=== PATIENT | male | born 1940 | race Caucasian/White ===

== ENCOUNTER → 2016-12-07 | Outpatient (CLI) | payer OTHER, MEDICARE | LOC: BMCIMAGING 14:09 | PROVIDERS: ATTEND Nurse Practitioner Adult Health | DX: Z01.810 Encounter for preprocedural cardiovascular examination (principal); R01.1 Cardiac murmur, unspecified; R91.8 Other nonspecific abnormal finding of lung field ==

== ENCOUNTER → 2016-12-28 | Outpatient (CLI) | payer OTHER, MEDICARE | LOC: FIMAGING 13:56 | PROVIDERS: ATTEND Physician Assistant Medical | DX: N20.0 Calculus of kidney (principal); N28.1 Cyst of kidney, acquired; N43.3 Hydrocele, unspecified; I70.0 Atherosclerosis of aorta ==

== ENCOUNTER → 2017-01-29 | Outpatient (CLI) | payer OTHER, MEDICARE | LOC: FLAB 13:20 | PROVIDERS: ATTEND Physician Assistant Medical | DX: N20.0 Calculus of kidney (principal); K59.00 Constipation, unspecified; Z96.0 Presence of urogenital implants ==

== ENCOUNTER → 2017-03-01 | Outpatient (CLI) | payer OTHER, MEDICARE | LOC: BMCIMAGING 07:17 | PROVIDERS: ATTEND Specialist | DX: N20.0 Calculus of kidney (principal); N28.1 Cyst of kidney, acquired; R31.0 Gross hematuria; N23 Unspecified renal colic ==

== ENCOUNTER 2017-08-25 09:45 | Inpatient (IN) | payer OTHER, MEDICARE ==
[~2017-08-25 09:45] MED LIST: TRANEXAMIC ACID 3,000 MG in NS 50 ML IRR ONE
[2017-08-25] MEDS ORDERED: TRANEXAMIC ACID 3,000 MG/50 ML BAG IRR ONE (09:56)
[2017-08-25] MEDS ORDERED: VANCOMYCIN 1 GM VIAL ONE (09:56)
--- NOTE | 2017-08-25 11:09 | PDHPUP ---
History & Physical Update H&P update statement: This history and physical update is based on an assessment of the patient which was completed after admission or registration (within 24 hours), but prior to the surgery/procedure. H&P update: H&P reviewed & patient examined, no change in patient's condition since H&P completed
[2017-08-25] MEDS ORDERED: FAMOTIDINE 20 MG TAB PO ONE (11:13)
[2017-08-25] MEDS ORDERED: DEXAMETHASONE 4 MG/ML VIAL IVP ONE (11:13)
[2017-08-25] MEDS ORDERED: ceFAZolin 2 GM/SWFI 2 GM/20 ML SYR IVP ONE (11:13)
[2017-08-25] MEDS ORDERED: ACETAMINOPHEN 325 MG TAB PO ONE (11:13)
[2017-08-25] MEDS ORDERED: LIDOCAINE 1% 2 ML INJ ID PRN (11:14)
[2017-08-25] MEDS ORDERED: LR 1,000 ML IV ONE (11:14)
[2017-08-25] MEDS ORDERED: MIDAZOLAM 2 MG/2 ML VIAL ONE (12:33)
--- NOTE | 2017-08-25 12:35 | PDANEPAE ---
ANE History of Present Illness R knee arthroplasty revision ANE Past Medical History - Cardiovascular History Hx Hypertension: Yes Hx Arrhythmias: No Hx Chest Pain: No Hx Coronary Artery / Peripheral Vascular Disease: No Hx CHF / Valvular Disease: No Hx Palpitations: No - Pulmonary History Hx COPD: No Hx Asthma/Reactive Airway Disease: No Hx Recent Upper Respiratory Infection: No Hx Oxygen in Use at Home: No Sleep Apnea Screening Result - Last Documented: Positive Pulmonary History Comment: USES CPAP - Neurologic History Hx Cerebrovascular Accident: No Hx Seizures: No Hx Dementia: No - Endocrine History Hx Diabetes: Yes Hypothyroid: No Obesity: mild Endocrine History Comment: DM II TAKES METFORMIN - Renal History Hx Renal Disorders: Yes Renal History Comment: KIDNEY STONES IN PAST - Liver History Hx Hepatic Disorders: No Hepatic History Comment: JERARDO - Neurological & Psychiatric Hx Hx Neurological and Psychiatric Disorders: No - Cancer History Hx Cancer: Yes Cancer History Comment: SKIN CANCER EAR & HEAD - Congenital Disorder History Hx Congenital Disorders: No - GI History Hx Gastrointestinal Disorders: No Gastrointestinal History Comment: GERD - Other Health History Other Health History: NONE - Chronic Pain History Chronic Pain: Yes (KNEE PAIN) - Surgical History Prior Surgeries: CHOLECYSTECTOMY. L. KIDNEY STONES. RIGHT TKA WITH DR CHEN . T & A. JROJE KNEE ARTHROSCOPY. JORJE SHOULDER ARTHROSCOPY ANE Review of Systems Review of Systems: - Exercise capacity METS (RN): 4 METS ANE Patient History - Allergies Allergies/Adverse Reactions: Iodinated Contrast- Oral and IV Dye Allergy (Severe, Verified 08/09/17 15:18) facial swelling, difficulty breathing & talking amoxicillin Allergy (Verified 08/04/17 13:10) Vomiting - Home Medications Home Medications: Atorvastatin Calcium [Lipitor 10 mg (*)] 10 mg PO HS 03/29/10 [Last Taken 17:00] Lisinopril [Zestril 10 mg (*)] 10 mg PO DAILY 03/29/10 [Last Taken 08/24/17 07: 00] Allopurinol [Allopurinol 100 MG (*)] 100 mg PO HS 07/27/14 [Last Taken 08/21/17] Metformin HCl [Metformin 1000 mg] 1,000 mg PO BIDMEAL 12/31/14 [Last Taken 08/24 17:00] Multivitamin with Minerals [Multiple Vitamin] 1 each PO DAILY 08/04/17 [Last Taken 08/18/17] - NPO status NPO Since - Liquids (Date): 08/25/17 NPO Since - Liquids (Time): 10:00 NPO Since - Solids (Date): 08/24/17 NPO Since - Solids (Time): 17:00 - Anes Hx Anes Hx: no prior problems - Smoking Hx Smoking Status: Never smoked Marijuana use: No - Alcohol Use Alcohol Use: Occasionally - Family Anes Hx Family Anes Hx: none Family Hx Anesthesia Complications: NONE ANE Labs/Vital Signs - Vital Signs Blood Pressure: 157/80 Heart Rate: 70 Respiratory Rate: 16 O2 Sat (%): 94 Height: 179.07 cm Weight: 97.522 kg ANE Physical Exam - Airway Neck exam: decreased ROM Mallampati Score: Class 3 (less than 3 FB mouth opening) Mouth exam: normal dental/mouth exam (SHORT TMD ) - Pulmonary Pulmonary: clear to auscultation - Cardiovascular Cardiovascular: regular rate and rhythym - ASA Status ASA Status: III ANE Anesthesia Plan Anesthesia Plan: spinal Regional Anesthesia: adductor canal FNB
[2017-08-25] MEDS ORDERED: fentaNYL 100 MCG/2 ML INJ ONE (12:56)
[2017-08-25] MEDS ORDERED: PROPOFOL 200 MG/20 ML VIAL ONE ×2 (12:56→14:18)
[2017-08-25] MEDS: ROPIVACAINE 0.2% 80 MG, EPINEPHrine 0.2 MG, KETOROLAC TROMETHAMINE 30 MG in SYRINGE 0 ML IU ONE ×2 (13:43→14:04)
[2017-08-25] MEDS ORDERED: MIDAZOLAM 2 MG/2 ML VIAL IVP ONE (13:45)
[2017-08-25] MEDS ORDERED: fentaNYL 100 MCG/2 ML INJ IVP PRN (14:04)
[2017-08-25] MEDS ORDERED: NALOXONE HCL 0.4 MG/ML INJ IVP PRN (14:04)
[2017-08-25] MEDS ORDERED: ROPIVACAINE HCL 150 MG/30 ML INJ ONE (14:20)
[2017-08-25] MEDS ORDERED: LR 1,000 ML IV SCH (14:30)
[2017-08-25] MEDS ORDERED: ONDANSETRON DISINTEGRATING 4 MG TAB PO PRN (14:30)
[2017-08-25] MEDS ORDERED: PROMETHAZINE HCL 25 MG SUPPR PR PRN (14:30)
[2017-08-25] MEDS ORDERED: PROMETHAZINE HCL 25 MG/ML INJ IVP PRN (14:30)
[2017-08-25] MEDS ORDERED: METOCLOPRAMIDE 10 MG/2 ML VIAL IVP PRN (14:30)
[2017-08-25] MEDS ORDERED: TEMAZEPAM 15 MG CAP PO PRN (14:30)
[2017-08-25] MEDS ORDERED: DIPHENOXYLATE/ATROPINE LOMOTIL 1 TAB PO PRN (14:30)
[2017-08-25] MEDS ORDERED: diphenhydrAMINE 25 MG CAP PO PRN (14:30)
[2017-08-25] MEDS ORDERED: MAGNESIUM HYDROXIDE 30 ML UDCUP PO PRN (14:30)
[2017-08-25] MEDS ORDERED: BISACODYL 10 MG SUPP PR PRN (14:30)
[2017-08-25] MEDS ORDERED: POLYETHYLENE GLYCOL 3350 17 GM PKT PO PRN (14:30)
[2017-08-25] MEDS ORDERED: CYCLOBENZAPRINE 10 MG TAB PO PRN (14:30)
[2017-08-25] MEDS ORDERED: oxyCODONE IR 5 MG TAB PO PRN (14:30)
[2017-08-25] MEDS ORDERED: LACTULOSE 20 GM/30 ML UDCUP PO PRN (14:30)
[2017-08-25] MEDS ORDERED: ONDANSETRON 4 MG/2 ML VIAL IVP PRN (14:30)
--- NOTE | 2017-08-25 14:30 | POSTOPPROG ---
Post Op Note Date of Operation: 08/25/17 Surgeon: Lisa Allen Limousine Driver: william allen Anesthesiologist: dr. kerns Anesthesia: Spinal, Other (Specify) (adductor canal block) Pre-op Diagnosis: failed R TKA Post-op Diagnosis: same Indication: Painful R TKA Procedure: R TKA revision Findings: instability Inf/Abcess present in the surg proc area at time of surgery?: No EBL: 50-100
--- NOTE | 2017-08-25 16:25 | POSTANESTH ---
Post Anesthetic Evaluation Cardiovascular Status: Similar to Pre-Op Cond Level of Consciousness/Mental Status: Can Participate in Eval Pain Control: Adequate, Prn Tx Ordered Nausea/Vomiting Control: Adequate, Prn Tx Ordered Complications Possibly Related to Anesthesia: None Noted
[2017-08-25] MEDS: metFORMIN HCL 500 MG TAB PO SCH (17:21)
[2017-08-25] MEDS: ACETAMINOPHEN 325 MG TAB PO SCH ×2 (17:22→23:24)
[2017-08-25] MEDS ORDERED: NON-FORMULARY NEW DRUG (Metformin Hcl [Metformin 1000 Mg] 1,000 MG) PO SCH (18:00)
[2017-08-25] MEDS: ASPIRIN EC 81 MG TAB PO SCH (20:00)
[2017-08-25] MEDS: FAMOTIDINE 20 MG TAB PO SCH (20:00)
[2017-08-25] MEDS: SENNOSIDES/DOCUSATE SODIUM TAB PO SCH (20:00)
[2017-08-25] MEDS: ceFAZolin 2 GM/SWFI 2 GM/20 ML SYR IVP SCH (20:00)
[2017-08-25] MEDS ORDERED: ATORVASTATIN CALCIUM 10 MG TAB PO SCH (21:00)
[2017-08-26 05:00] VITALS: O2SAT 93
[2017-08-26] MEDS: ceFAZolin 2 GM/SWFI 2 GM/20 ML SYR IVP SCH (05:03)
[2017-08-26] MEDS: ACETAMINOPHEN 325 MG TAB PO SCH ×2 (05:03→13:28)
[2017-08-26 06:52] LABS: HEMATOCRIT 37.6 % (40.0-51.0); HEMOGLOBIN 12.9 g/dL (13.7-17.5)
[2017-08-26 07:45] VITALS: BP 139/80; PULSE 68; RESP 16; TEMP 98
[2017-08-26] MEDS: metFORMIN HCL 500 MG TAB PO SCH (08:47)
[2017-08-26] MEDS: ASPIRIN EC 81 MG TAB PO SCH (08:47)
[2017-08-26] MEDS: FAMOTIDINE 20 MG TAB PO SCH (08:47)
[2017-08-26] MEDS: SENNOSIDES/DOCUSATE SODIUM TAB PO SCH (08:47)
[2017-08-26] MEDS ORDERED: LISINOPRIL 10 MG TAB PO SCH (09:00)
--- NOTE | 2017-08-26 09:28 | SOAPPROG ---
SOAP Progress Note Assessment/Plan: Assessment: Patient is doing well POD 1 s/p R TKA revision Pain management: pain is well controlled on oral pain meds. VTE ppx: recommend aspirin daily for 4 weeks, cont BRYAN and SCDs Anemia: level is expected initially postop. Asymptomatic. Continue to monitor D/c planning: d/c to home today pending release from PT Plan: 08/26/17 09:27 Subjective: Brooks is doing well today, denies SOB, chest pain and N/V. Objective: Vital Signs Temp Pulse Resp BP Pulse Ox 36.7 C 68 16 139/80 H 93 08/26/17 07:43 08/26/17 07:43 08/26/17 07:43 08/26/17 08:46 08/26/17 07:43 Laboratory Results 08/26/17 05:40 08/25/17 08/26/17 08/27/17 05:59 05:59 05:59 Intake Total 1350 Output Total 1255 Balance 95 RLE: incision dressing is clean and dry, NVI, +pf/df ICD10 Worksheet Patient Problems: Problems Problem Status Onset Failed total knee arthroplasty Acute Osteoarthritis of right knee Acute
--- NOTE | 2017-08-26 16:15 | ASDISCHSUM ---
Discharge Information Plan Status:Home with No Needs Medically Cleared to Leave: Discharge Date:08/26/2017 04:04 PM D/C Disposition:Home Health Service ADT D/C Disposition:Home, Routine, Self-Care Projected Discharge Date:08/26/2017 04:04 PM Transportation at D/C: Discharge Delay Reason: Follow-Up Date:08/26/2017 04:04 PM Discharge Slot: Final Diagnosis: Placement Information Patient Contact Information Contact Name:CHONG Relationship:Damian Address: Work Phone: City[email or web address] Alternate Phone: [facility]/Zip Code:[place] [address] Email: Financial Information Financial Class: Primary Plan Desc:MEDICARE INPATIENT Primary Plan Number:[id number] Secondary Plan Desc:[employer]/MDR SUPPLEMENT Secondary Plan Number:[id number] Assessment Information Intervention Information
--- NOTE | 2017-08-27 03:09 | GDS ---
[f rep st] DISCHARGE SUMMARY ADMISSION DIAGNOSIS: Right knee osteoarthritis. DISCHARGE DIAGNOSIS: Right knee osteoarthritis. PROCEDURE: Revision right knee arthroplasty. VTE PROPHYLAXIS: Recommend aspirin. BRIEF DESCRIPTION OF HOSPITAL STAY: Patient was admitted for an elective joint arthroplasty. The pa micky tolerated the procedure well and has passed physical therapy. The patient was given appropriat e antibiotic prophylaxis and venous thromboembolism prophylaxis. The patient's pain was well control led on oral pain medication, patient was holding down food, and had urinated. Decision was made to d ischarge the patient. The patient was given post-operative prescriptions pre-operatively. PLAN: Please follow up as scheduled at Dr. Benjamin's office September 16 at 9 a.m. /[id number]/MODL
--- NOTE | 2017-08-27 12:24 | GOP ---
[f rep st] OPERATIVE REPORT DATE OF OPERATION: 08/25/2017 SURGEON: Paco Benjamin MD TELEMETRY MONITOR: Maritza Benjamin, DOUG. PREOPERATIVE DIAGNOSIS: Right knee unstable total knee arthroplasty. POSTOPERATIVE DIAGNOSIS: Right knee unstable total knee arthroplasty. PROCEDURE PERFORMED: Revision of right total knee arthroplasty, tibial component. FINDINGS: Global instability, well fixed components ESTIMATED BLOOD LOSS: 30 cc. INDICATIONS: The patient is a 76-year-old gentleman with failed total knee due to instability_. The patient had risks and benefits explained to him, informed consent is obtained. DESCRIPTION OF PROCEDURE: The patient was identified in the preoperative holding area. His right lower extremity was marked. He was brought back to the operating room. After induction of anesthesia, a nonsterile tourniquet was placed on his right upper thigh. He was then prepped and draped in usual sterile fashion. Time-out was taken confirming patient, laterality, procedure, allergies, and antibiotic status. Tourniquet was inflated. We proceeded through the prior the arthrotomy. Removed some thickened scar tissue. Removed his polyethylene. This was found to be 5 x 11 mm. We explored the tibial and femoral components. These were found to be well fixed. We then tried the 5 x 13 mm polyethylene which was stable in extension and flexion. Placed a permanent 13 mm X3 polyethylene. Copiously irrigated. The tourniquet was released and any bleeding was stopped with electrocautery. Incisions were closed in layers. The patient was placed in a sterile dressing, awakened, and brought to PACU in good condition with a well-perfused limb. /[id number]/MODL MTDD
== END 2017-08-26 16:04 | disposition home or self-care (01) | DRG 468 ==
LOC: F3N 10:48
PROVIDERS: ADMIT Orthopaedic Surgery; ATTEND Orthopaedic Surgery
DX: T84.022A Instability of internal right knee prosthesis, initial encounter (principal); I10 Essential (primary) hypertension; G47.30 Sleep apnea, unspecified; E11.9 Type 2 diabetes mellitus without complications; Z79.84 Long term (current) use of oral hypoglycemic drugs
CPT/HCPCS: 97161-GP; 97165-GO; G8978-GP-CI; G8979-GP-CH; G8987-GO-CI; G8988-GO-CI; G8989-GO-CI; J0171; J0690; J1100; J1885; J2250; J2704; J2795; J3010; J3370

== ENCOUNTER → 2017-11-29 | Outpatient (CLI) | payer OTHER, MEDICARE | LOC: BMCIMAGING 08:37 | PROVIDERS: ATTEND Orthopaedic Surgery Hand Surgery | DX: R22.31 Localized swelling, mass and lump, right upper limb (principal); R22.32 Localized swelling, mass and lump, left upper limb ==

== ENCOUNTER → 2018-06-15 | Outpatient (CLI) | payer OTHER, MEDICARE | LOC: FIMAGING 09:16 | PROVIDERS: ATTEND Emergency Medicine | DX: N20.0 Calculus of kidney (principal); N42.9 Disorder of prostate, unspecified; K57.30 Diverticulosis of large intestine without perforation or abscess without bleeding; N43.3 Hydrocele, unspecified ==

== ENCOUNTER 2019-01-26 07:14 | Observation (INO) | payer OTHER, MEDICARE ==
--- NOTE | 2019-01-25 18:27 | GHP ---
[f rep st] PREOP HISTORY AND PHYSICAL ADMISSION DIAGNOSIS: BPH with urinary obstruction and nocturia. HISTORY OF PRESENT ILLNESS: This an 78-year-old gentleman who has had significant BPH with urinary obstruction. He has been on Myrbetriq in the past , which was not helpful for his lower urinary tract symptoms. He had a cystoscopy in 2013, a UDS in 2012 that showed outlet obstruction with overactivity. At the present time, indications, risks and options have been discussed, and he is admitted for a TURP. His AUA scores have varied from 12 to 22. PAST MEDICAL HISTORY: Positive for hematuria, kidney stones, sleep apnea, hypertension. PAST SURGICAL HISTORY: Cholecystectomy, knee surgery, shoulder, ultrasound without biopsy of the prostate. MEDICATIONS: Allopurinol, Lipitor, lisinopril, metformin, multivitamins ALLERGIES: To amoxicillin and IVP contrast. FAMILY HISTORY: Diabetes. SOCIAL HISTORY: Daily alcohol consumption. . Nonsmoker. REVIEW OF SYSTEMS: Negative cardiac, respiratory, GI and endocrine. PHYSICAL EXAMINATION: VITAL SIGNS: Stable. CHEST: Clear. HEART: Regular rate and rhythm. ABDOMEN: Normal. No organomegaly, rebound or guarding. LOWER EXTREMITIES: Normal. He did have a transrectal ultrasound of prostate July 25, 2018, revealed a prostate of 27.6 g. PSA density 0.00. He had an intravesical lobe, elevated bladder neck and prostatic calculi along the urethra. At the present time, he is admitted for the above procedure. Indications, complications, risks and potential urge incontinence were discussed to be due to his overactive bladder. He appears to understand. Written and verbal consent is obtained. He is admitted for the above procedure. /[id number]/MODL MTDD
[2019-01-26] MEDS ORDERED: VANCOMYCIN PHARMACY TO DOSE MISC ONE (07:54)
[2019-01-26] MEDS ORDERED: LR 1,000 ML IV ONE (07:55)
[2019-01-26] MEDS ORDERED: VANCOMYCIN 1.5 GM in NS 250 ML IV ONE (08:00)
[2019-01-26] MEDS ORDERED: ceFAZolin 2 GM/DEXTROSE 100 ML IV ONE (08:30)
[2019-01-26] MEDS ORDERED: LIDOCAINE 2% JELLY 20 ML (UROJECT) ONE (08:59)
--- NOTE | 2019-01-26 09:03 | PDANEPAE ---
ANE History of Present Illness TURP ANE Past Medical History - Cardiovascular History Hx Hypertension: Yes Hx Arrhythmias: No Hx Chest Pain: No Hx Coronary Artery / Peripheral Vascular Disease: No Hx CHF / Valvular Disease: No Hx Palpitations: No Cardiovascular History Comment: HEART MURMUR - Pulmonary History Hx COPD: No Hx Asthma/Reactive Airway Disease: No Hx Recent Upper Respiratory Infection: No Hx Oxygen in Use at Home: No Hx Sleep Apnea: Yes Sleep Apnea Screening Result - Last Documented: Positive Pulmonary History Comment: PENNY-USES CPAP - Neurologic History Hx Cerebrovascular Accident: No Hx Seizures: No Hx Dementia: No - Endocrine History Hx Diabetes: Yes Hypothyroid: Yes Hyperthyroid: Yes Obesity: mild Endocrine History Comment: NIDDM - Renal History Hx Renal Disorders: Yes Renal History Comment: KIDNEY STONES IN PAST - Liver History Hx Hepatic Disorders: No Hepatic History Comment: JERARDO - Neurological & Psychiatric Hx Hx Neurological and Psychiatric Disorders: No - Cancer History Hx Cancer: Yes Cancer History Comment: SKIN CANCER EAR & HEAD - Congenital Disorder History Hx Congenital Disorders: No - GI History Hx Gastrointestinal Disorders: No Gastrointestinal History Comment: GERD - Other Health History Other Health History: NONE - Chronic Pain History Chronic Pain: Yes (JORJE KNEES) - Surgical History Prior Surgeries: RT TOTAL KNEE REVISION 2016. JORJE CATARACTS. CHOLECYSTECTOMY. KIDNEY STONES. RIGHT TKA WITH DR CHEN 08/19. T & A. JORJE KNEE ARTHROSCOPY. JORJE SHOULDER ARTHROSCOPY ANE Review of Systems Review of Systems: - Exercise capacity METS (RN): 4 METS ANE Patient History - Allergies Allergies/Adverse Reactions: Iodinated Contrast- Oral and IV Dye Allergy (Severe, Verified 08/09/17 15:18) facial swelling, difficulty breathing & talking amoxicillin Allergy (Verified 08/04/17 13:10) Vomiting - Home Medications Home medications: home medication list seen and reviewed Home Medications: Atorvastatin Calcium [Lipitor 10 mg (*)] 10 mg PO HS 03/29/10 [Last Taken ] Lisinopril [Zestril 10 mg (*)] 10 mg PO DAILY 03/29/10 [Last Taken 01/25/19] Metformin HCl [Metformin 1000 mg] 1,000 mg PO BIDMEAL 12/31/14 [Last Taken 01/25] Multivitamin with Minerals [Multiple Vitamin] 1 each PO DAILY 08/04/17 [Last Taken 01/25/19] Allopurinol 100 MG (*) HS 01/19/19 [Last Taken 01/25/19] Tradjenta DAILY 01/19/19 [Last Taken 01/25/19] - NPO status NPO Status: no food or drink >8 hours NPO Since - Liquids (Date): 01/25/19 NPO Since - Liquids (Time): 05:30 NPO Since - Solids (Date): 01/25/19 NPO Since - Solids (Time): 17:30 - Smoking Hx Smoking Status: Never smoked - Family Anes Hx Family Hx Anesthesia Complications: NONE ANE Labs/Vital Signs - Vital Signs Blood Pressure: 139/82 Heart Rate: 61 Respiratory Rate: 18 O2 Sat (%): 94 Height: 177.8 cm Weight: 97.522 kg ANE Physical Exam - Airway Neck exam: decreased ROM Mallampati Score: Class 2 Mouth exam: normal dental/mouth exam - Pulmonary Pulmonary: no respiratory distress, no rales or rhonchi - Cardiovascular Cardiovascular: regular rate and rhythym, systolic murmur ANE Anesthesia Plan Anesthesia Plan: spinal
[2019-01-26] MEDS ORDERED: fentaNYL 100 MCG/2 ML INJ ONE (09:13)
[2019-01-26] MEDS ORDERED: ZOLPIDEM TARTRATE 5 MG TAB PO PRN (09:23)
[2019-01-26] MEDS ORDERED: ONDANSETRON 4 MG/2 ML VIAL IVP PRN ×2 (09:23→10:13)
[2019-01-26] MEDS ORDERED: ONDANSETRON DISINTEGRATING 4 MG TAB PO PRN (09:23)
[2019-01-26] MEDS ORDERED: ACETAMINOPHEN 325 MG TAB PO PRN (09:23)
--- NOTE | 2019-01-26 09:27 | POSTOPPROG ---
Post Op Note Date of Operation: 01/26/19 (dictated) Surgeon: Aidan Gill Anesthesiologist: Fadi Anesthesia: Spinal Pre-op Diagnosis: BPH with LUTS Procedure: TURP Inf/Abcess present in the surg proc area at time of surgery?: No EBL: 50-100 Drains: Other (rogers) Specimen(s): sent
[2019-01-26] MEDS ORDERED: D5W LR 1,000 ML IV SCH (09:30)
[2019-01-26] MEDS ORDERED: PHENYLEPHRINE HCL 100 MCG/ML SYR ONE (09:42)
[2019-01-26] MEDS ORDERED: PROPOFOL 200 MG/20 ML VIAL ONE (09:42)
[2019-01-26] MEDS ORDERED: NALOXONE HCL 0.4 MG/ML INJ IVP PRN (10:13)
[2019-01-26] MEDS ORDERED: LR 500 ML IV PRN (10:13)
[2019-01-26] MEDS ORDERED: oxyCODONE IR 5 MG TAB PO PRN (10:13)
[2019-01-26] MEDS ORDERED: fentaNYL 100 MCG/2 ML INJ IVP PRN (10:13)
--- NOTE | 2019-01-26 11:55 | POSTANESTH ---
Post Anesthetic Evaluation Cardiovascular Status: Normal, Stable Respiratory Status: Normal, Stable Level of Consciousness/Mental Status: Can Participate in Eval Pain Control: Adequate, Prn Tx Ordered Nausea/Vomiting Control: Adequate, Prn Tx Ordered Complications Possibly Related to Anesthesia: None Noted
[2019-01-26] MEDS: HYDROCODONE/APAP 5/325 TAB PO PRN ×3 (13:24→22:36)
[2019-01-26] MEDS: OPIUM/BELLADONNA ALKALO SUPP PR PRN ×2 (18:39→22:42)
[2019-01-27] MEDS: HYDROCODONE/APAP 5/325 TAB PO PRN (06:01)
--- NOTE | 2019-01-27 07:40 | SOAPPROG ---
SOAP Progress Note Assessment/Plan: Assessment: BPH loc w urin obs/LUTS Acute POD#1 TURP, doing well, path pending Plan: DC rogers and dc home 01/27/19 07:40 Objective: Vital Signs Temp Pulse Resp BP Pulse Ox 36.5 C 65 14 139/73 H 96 01/27/19 03:43 01/27/19 03:43 01/27/19 03:43 01/27/19 03:43 01/27/19 03:43 01/26/19 01/27/19 01/28/19 05:59 05:59 05:59 Intake Total 3619 Output Total 820 Balance 2799 Physical Exam - Physical Exam General Appearance: alert Neck: supple Respiratory: No respiratory distress Back: No CVA tenderness Neuro/Psych: alert, oriented x 3 ICD10 Worksheet Patient Problems: Problems Problem Status Onset BPH loc w urin obs/LUTS Acute Failed total knee arthroplasty Acute Osteoarthritis of right knee Acute - ICD10 Problem Qualifiers (1) BPH loc w urin obs/LUTS
--- NOTE | 2019-01-27 11:07 | ASMTLACE ---
LACE Length of stay for Answers: 1 day current admission Acuity / Level of Answers: No Care: Did the patient have an inpatient admission? Comorbidities - select Answers: Diabetes (uncontrolled or all that apply controlled) Opioid dependence / Chronic pain Other Notes: HTN; Hypothyroid # of Emergency department Answers: 0 visits in the last 6 months Score: 7 Date Signed: 01/27/2019 11:07 AM Electronically Signed By:Adenike Kunz RN
[2019-01-27 11:13] VITALS: BP 144/80
== END 2019-01-27 13:55 | disposition home or self-care (01) ==
LOC: F3E 07:14 → EDSTATUS 09:00 → F1N 11:48
PROVIDERS: ADMIT Specialist; ATTEND Specialist
PROC: 0VB08ZZ Excision of Prostate, Via Natural or Artificial Opening Endoscopic (ICD-10-PCS; principal; 2019-01-26 09:00)
DX: N40.1 Benign prostatic hyperplasia with lower urinary tract symptoms (principal); R35.1 Nocturia; R33.9 Retention of urine, unspecified; G47.33 Obstructive sleep apnea (adult) (pediatric); I10 Essential (primary) hypertension; E11.9 Type 2 diabetes mellitus without complications; K21.9 Gastro-esophageal reflux disease without esophagitis; Z96.651 Presence of right artificial knee joint; Z85.828 Personal history of other malignant neoplasm of skin
CPT/HCPCS: 52601; 88305; J0690; J2370; J2704; J3010; J3370